=== PATIENT | female | born 1960 | race Caucasian/White ===

== ENCOUNTER 2020-12-16 08:58 | Day surgery (SDC) | payer OTHER ==
[2020-12-16 09:21] VITALS: BMI 30.2
[2020-12-16 09:32] VITALS: TEMP 98.4
[2020-12-16 11:23] VITALS: BP 86/52; PULSE 77
== END 2020-12-16 11:15 | disposition home or self-care (01) ==
LOC: FASU-ENDO 08:58
PROVIDERS: ATTEND Internal Medicine Gastroenterology
PROC: 0DJD8ZZ Inspection of Lower Intestinal Tract, Via Natural or Artificial Opening Endoscopic (ICD-10-PCS; principal; 2020-12-16 10:16)
DX: Z12.11 Encounter for screening for malignant neoplasm of colon (principal); K64.0 First degree hemorrhoids; K64.8 Other hemorrhoids

== ENCOUNTER → 2022-06-30 | Day surgery (SDC) | payer OTHER | END | disposition home or self-care (01) | LOC: FMAMMOTONE 08:20 | PROVIDERS: ATTEND Nurse Practitioner Family | PROC: 0HBU3ZX Excision of Left Breast, Percutaneous Approach, Diagnostic (ICD-10-PCS; principal; 2022-06-30) | DX: D24.2 Benign neoplasm of left breast (principal); N64.89 Other specified disorders of breast; R92.1 Mammographic calcification found on diagnostic imaging of breast | CPT/HCPCS: 19081; 76098-TC-FY; 87899; 88305-TC; A4648 ==